=== PATIENT | male | born 1930 | race African-American/Black ===

== ENCOUNTER 2019-08-14 11:06 | Emergency (ER) | payer OTHER ==
[~2019-08-14] VITALS: Ht 172.7 cm; Wt 64.0 kg
[2019-08-14] MEDS ORDERED: SODIUM CHLORIDE 0.9% 1000ML BAG (SEPSIS BOLUS) IV ONE (11:45)
[2019-08-14 12:17] LABS: BASOPHILS % 0.6 % (0.0-2.0); EOSINOPHILS % 4.1 % (0.0-5.0); HEMATOCRIT. 42.4 % (42.0-52.0); HEMOGLOBIN. 14.5 g/dL (14.0-18.0); LYMPHOCYTES % 38.9 % (20.0-50.0); MEAN CORPUSCULAR HEMOGLOBIN 30.3 pg (28.0-32.0); MEAN CORPUSCULAR VOLUME 88.7 fL (80.0-94.0); MEAN PLATELET VOLUME 8.3 fl (7.4-10.4); MONOCYTES % 12.4 % (2.0-8.0); PLATELET 155 x1000/uL (130-400); RED BLOOD CELL COUNT 4.78 mill/uL (4.7-6.1); RED CELL DISTRIBUTION WIDTH 14.7 % (11.6-14.6)
[2019-08-14 12:22] LABS: INR 1.1; PROTHROMBIN TIME 11.1 sec (9.6-11.0)
[2019-08-14 12:30] LABS: CHLORIDE 109 mEq/L (98-107)
[2019-08-14] MEDS ORDERED: PIPERACILLIN/TAZ 3.375G PREMIX 50 ML IV ONE (12:45)
[2019-08-14] MEDS ORDERED: VANCOMYCIN 1 G PREMIX 200 ML IV ONE (12:45)
[2019-08-14 17:02] VITALS: BP 131/78
== END 2019-08-14 18:17 | disposition short-term general hospital (02) ==
LOC: ER 11:06 → CANBEDREQ 20:35
DX: R65.20 Severe sepsis without septic shock (principal); R55 Syncope and collapse; I10 Essential (primary) hypertension
CPT/HCPCS: 36415; 71045; 80053; 83605; 84145; 84484; 85025; 85610; 87040; 93005; 96361; 96365; 96367; 99291; J2543; J3370; J7030

== ENCOUNTER 2021-06-28 13:10 | Emergency (ER) | payer OTHER ==
[~2021-06-28] VITALS: Ht 170.2 cm; Wt 50.0 kg
[2021-06-28] MEDS ORDERED: SODIUM CHLORIDE 0.9% 1,000 ML IV ONE (14:15)
[2021-06-28 14:44] LABS: BASOPHILS % 0.5 % (0.0-2.0); EOSINOPHILS % 4.4 % (0.0-5.0); HEMATOCRIT. 39.5 % (42.0-52.0); LYMPHOCYTES % 30.1 % (20.0-50.0); MEAN CORPUSCULAR HEMOGLOBIN 30.2 pg (28.0-32.0); MEAN CORPUSCULAR VOLUME 91.9 fL (80.0-94.0); RED CELL DISTRIBUTION WIDTH 14.8 % (11.6-14.6)
[2021-06-28 14:45] LABS: CHLORIDE 111 mEq/L (98-107)
[2021-06-28 16:52] LABS: MEAN PLATELET VOLUME 8.9 fl (7.4-10.4); PLATELET 81 x1000/uL (130-400)
[2021-06-28] MEDS ORDERED: INSULIN REGULAR (HUMULIN R) 300UNITS/3ML VIAL IV ONE (17:00)
[2021-06-28] MEDS ORDERED: DEXTROSE 50% WATER 50ML SYRINGE IV ONE (17:00)
[2021-06-28] MEDS ORDERED: SODIUM POLYSTYRENE SULFONATE 15 G/60 ML BOT PO ONE (17:00)
[2021-06-29 00:33] VITALS: BP 137/66
== END 2021-06-29 00:47 | disposition short-term general hospital (02) ==
LOC: ER 14:04 → CANBEDREQ 22:30 → ER 06-29 00:47
DX: I67.9 Cerebrovascular disease, unspecified (principal); E87.5 Hyperkalemia; S09.8XXA Other specified injuries of head, initial encounter; I10 Essential (primary) hypertension; D69.6 Thrombocytopenia, unspecified; R53.81 Other malaise; R77.8 Other specified abnormalities of plasma proteins; H26.9 Unspecified cataract; F03.90 Unspecified dementia, unspecified severity, without behavioral disturbance, psychotic disturbance, mood disturbance, and anxiety; E87.8 Other disorders of electrolyte and fluid balance, not elsewhere classified; G31.9 Degenerative disease of nervous system, unspecified; W01.10XA Fall on same level from slipping, tripping and stumbling with subsequent striking against unspecified object, initial encounter; Y93.89 Activity, other specified; Y92.013 Bedroom of single-family (private) house as the place of occurrence of the external cause; Z74.01 Bed confinement status
CPT/HCPCS: 36415; 70450; 71045; 80053; 84484; 85025; 93005; 96374; 96375; 99285; J1815; J7030

== ENCOUNTER 2021-08-26 13:12 | Inpatient (IN) | payer OTHER ==
[~2021-08-26] VITALS: Ht 177.8 cm; Wt 50.8 kg
[2021-08-26 13:30] LABS: HEMATOCRIT. 40.5 % (42.0-52.0); HEMOGLOBIN. 13.3 g/dL (14.0-18.0); MEAN CORPUSCULAR HEMOGLOBIN 29.5 pg (28.0-32.0); MEAN PLATELET VOLUME 8.5 fl (7.4-10.4); PLATELET 232 x1000/uL (130-400); RED CELL DISTRIBUTION WIDTH 14.2 % (11.6-14.6)
[2021-08-26] MEDS ORDERED: SODIUM CHLORIDE 0.9% 1,000 ML IV ONE (13:30)
[2021-08-26 13:41] LABS: BG CARBOXYHEMOGLOBIN 0.4 % (0.5-1.5); BG DEOXYHEMOGLOBIN 3.5 % (0.0-5.0); BG FRACTION INSPIRED OXYGEN 21; BG METHEMOGLOBIN 0.2 % (0.0-1.5); BG OXYGEN SATURATION 96.5 % (92.0-98.5); BG OXYHEMOGLOBIN 95.9 % (94.0-97.0); BG PCO2 35.1 mmHg (35.0-45.0); BG PH 7.414 (7.350-7.450); BG PO2 83.2 mmHg (75.0-100.0); BG SAMPLE SITE RIGHT RADIAL; BG VENT MODE ROOM AIR
[2021-08-26 14:04] LABS: CHLORIDE 108 mEq/L (98-107); CREATINE KINASE 122 IU/L (39-308)
[2021-08-26 14:06] LABS: ETHANOL BLOOD < 10 mg/dL
[2021-08-26] MEDS ORDERED: VANCOMYCIN 1G PREMIX 200 ML IV SCH (15:15)
[2021-08-26] MEDS ORDERED: CEFEPIME HCL 1000MG/VIAL INJ IM ONE (15:15)
[2021-08-26 15:46] LABS: PLATELET ESTIMATE NORMAL
[2021-08-26] MEDS ORDERED: ALBUTEROL (0.083%) 2.5MG/3ML NEB HHN ONE (16:00)
[2021-08-26] MEDS ORDERED: DEXTROSE 50% WATER 50ML SYRINGE IV ONE (16:00)
[2021-08-26] MEDS ORDERED: CALCIUM CHLORIDE 1GM/10ML SYR IV ONE (16:00)
[2021-08-26] MEDS ORDERED: INSULIN REGULAR (HUMULIN R) 300UNITS/3ML VIAL IV ONE (16:00)
[2021-08-26] MEDS ORDERED: CEFEPIME HCL 1000MG/VIAL INJ IV ONE (16:15)
[2021-08-26] MEDS ORDERED: CEFEPIME 1,000 MG in DEXTROSE 5% WATER 50 ML IV SCH (16:30)
[2021-08-26 17:01] LABS: CLARITY URINE CLEAR (CLEAR); COLOR URINE DK YELLOW (YELLOW); KETONES URINE NEGATIVE (NEGATIVE); LEUKOCYTE ESTERASE URINE NEGATIVE (NEGATIVE); NITRITE URINE NEGATIVE (NEGATIVE); OCCULT BLOOD URINE 3+ (NEGATIVE); PROTEIN URINE NEGATIVE (NEGATIVE); SPECIFIC GRAVITY URINE 1.016 (1.005-1.030); UROBILINOGEN URINE 0.2 E.U./dL (0.2-1.0)
[2021-08-26] MEDS ORDERED: MAGNESIUM/ALUMINUM HYDROXIDE/SIMETHICONE 30ML UDC PO PRN (17:15)
[2021-08-26] MEDS ORDERED: DOCUSATE SODIUM 100MG CAPSULE PO PRN (17:15)
[2021-08-26] MEDS ORDERED: CLONIDINE 0.1MG TABLET PO PRN (17:15)
[2021-08-26] MEDS ORDERED: GUAIFENESIN 200MG/10ML SUGAR FREE UDC PO PRN (17:15)
[2021-08-26] MEDS ORDERED: IPRATROPIUM/ALBUTEROL 0.5-3(2.5)MG/3ML NEB NEB PRN (17:15)
[2021-08-26] MEDS ORDERED: ZOLPIDEM TARTRATE 5MG TABLET PO PRN (17:15)
[2021-08-26] MEDS ORDERED: ACETAMINOPHEN 325MG TABLET PO PRN ×2 (17:15)
[2021-08-26] MEDS ORDERED: NITROGLYCERIN 0.4MG TABLET SL SL PRN (17:15)
[2021-08-26] MEDS ORDERED: ONDANSETRON HCL 4MG/2ML INJ IV PRN (17:15)
[2021-08-26 17:42] LABS: *AMPHETAMINES SCREEN URINE NEGATIVE (NEGATIVE); CANNABINOID URINE SCREEN NEGATIVE (NEGATIVE); OPIATES URINE SCREEN NEGATIVE (NEGATIVE); PHENCYCLIDINE URINE SCREEN NEGATIVE (NEGATIVE)
[2021-08-26 17:43] LABS: *BARBITURATES SCREEN URINE NEGATIVE (NEGATIVE)
[2021-08-26 17:44] LABS: *BENZODIAZEPINES SCREEN URINE NEGATIVE (NEGATIVE); METHADONE URINE SCREEN NEGATIVE (NEGATIVE)
[2021-08-26 17:45] LABS: *COCAINE SCREEN URINE NEGATIVE (NEGATIVE)
[2021-08-26 19:03] LABS: T4 FREE 1.38 ng/dL (0.76-1.46)
[2021-08-26 19:22] LABS: FOLIC ACID (FOLATE) SERUM >20 ng/mL ng/mL (>5.38)
[2021-08-26 19:32] LABS: VITAMIN B12 SERUM 1268 pg/mL (211-911)
[2021-08-26] MEDS: ENOXAPARIN 30MG/0.3ML SYR SUBCUT SCH (20:15)
[2021-08-26] MEDS: DEXT 5%/0.45% NACL 1000ML 1,000 ML IV SCH (20:16)
[2021-08-26] MEDS: PIPERACILLIN/TAZ 3.375G PREMIX 50 ML IV SCH (20:47)
[2021-08-26] MEDS: ASCORBIC ACID 500 MG TABLET PO SCH (21:29)
[2021-08-26] MEDS: METOPROLOL TARTRATE 25MG TABLET PO SCH (21:30)
[2021-08-26 22:19] LABS: CREATINE KINASE MB FRACTION 1.4 ng/mL (0.5-3.6)
[2021-08-27] MEDS: DEXT 5%/0.45% NACL 1000ML 1,000 ML IV SCH ×3 (03:45→23:24)
[2021-08-27 05:30] LABS: CHLORIDE 109 mEq/L (98-107)
[2021-08-27 05:40] LABS: HEMOGLOBIN. 11.5 g/dL (14.0-18.0); MEAN CORPUSCULAR HEMOGLOBIN 30.2 pg (28.0-32.0); MEAN PLATELET VOLUME 8.6 fl (7.4-10.4); PHOSPHORUS 3.5 mg/dL (2.5-4.9); PLATELET 173 x1000/uL (130-400); RED BLOOD CELL COUNT 3.82 mill/uL (4.7-6.1); RED CELL DISTRIBUTION WIDTH 14.3 % (11.6-14.6)
[2021-08-27 05:41] LABS: LDL CHOLESTEROL 87 mg/dL (5-100)
[2021-08-27 05:43] LABS: HDL CHOLESTEROL 37 mg/dL (40-59)
[2021-08-27 05:45] LABS: CREATINE KINASE MB FRACTION 1.6 ng/mL (0.5-3.6)
[2021-08-27 05:47] LABS: PLATELET ESTIMATE NORMAL
[2021-08-27] MEDS: ZINC SULFATE 220 MG ( 50 ) CAPSULE PO SCH (08:45)
[2021-08-27] MEDS: CHOLECALCIFEROL (D3) 1000 UNIT TABLET PO SCH (09:45)
[2021-08-27] MEDS: PIPERACILLIN/TAZ 3.375G PREMIX 50 ML IV SCH (10:02)
[2021-08-27] MEDS: PANTOPRAZOLE SODIUM 40 MG/VIAL IV SCH (10:04)
[2021-08-27] MEDS: ASCORBIC ACID 500 MG TABLET PO SCH ×2 (10:11→20:48)
[2021-08-27] MEDS: ASPIRIN 325MG EC TABLET PO SCH (10:11)
[2021-08-27] MEDS: METOPROLOL TARTRATE 25MG TABLET PO SCH ×2 (10:13→20:48)
[2021-08-27 10:30] VITALS: BP 133/71
[2021-08-27 12:05] VITALS: BP 133/71
[2021-08-27] MEDS ORDERED: VANCOMYCIN 1250MG in DEXTROSE 5% WATER 250ML IV NR (13:00)
[2021-08-27 16:14] VITALS: BP 128/86
[2021-08-27] MEDS: ENOXAPARIN 30MG/0.3ML SYR SUBCUT SCH (17:35)
[2021-08-27 20:00] VITALS: BP_SYST 143; BP_SYST 150; BP_DIAS 85; BP_DIAS 94
[2021-08-27] MEDS: PIPERACILLIN/TAZOBACTAM 3.375 G in DEXTROSE 5% WATER 50 ML IV SCH (20:48)
[2021-08-28] VITALS: BP 150/94
[2021-08-28 03:52] VITALS: BP 152/89
[2021-08-28 08:00] VITALS: BP 139/91
[2021-08-28] MEDS: ASPIRIN 325MG EC TABLET PO SCH (09:00)
[2021-08-28] MEDS: PIPERACILLIN/TAZOBACTAM 3.375 G in DEXTROSE 5% WATER 50 ML IV SCH ×2 (09:31→21:46)
[2021-08-28] MEDS: PANTOPRAZOLE SODIUM 40 MG/VIAL IV SCH (09:31)
[2021-08-28] MEDS: DEXT 5%/0.45% NACL 1000ML 1,000 ML IV SCH ×2 (09:31→21:46)
[2021-08-28] MEDS: ASCORBIC ACID 500 MG TABLET PO SCH ×2 (09:32→21:47)
[2021-08-28] MEDS: METOPROLOL TARTRATE 25MG TABLET PO SCH ×2 (09:32→21:47)
[2021-08-28] MEDS: ZINC SULFATE 220 MG ( 50 ) CAPSULE PO SCH (09:33)
[2021-08-28] MEDS: CHOLECALCIFEROL (D3) 1000 UNIT TABLET PO SCH (09:33)
[2021-08-28 12:09] VITALS: BP 144/98
[2021-08-28 16:00] VITALS: BP 139/93
[2021-08-28] MEDS: ENOXAPARIN 30MG/0.3ML SYR SUBCUT SCH (17:42)
[2021-08-28 20:00] VITALS: BP 127/86
[2021-08-28] MEDS ORDERED: VANCOMYCIN 750 MG in DEXT 5% WATER 250 ML IV SCH (23:00)
[2021-08-29] VITALS: BP 137/83
[2021-08-29 04:00] VITALS: BP 148/97
[2021-08-29] MEDS: DEXT 5%/0.45% NACL 1000ML 1,000 ML IV SCH ×2 (05:24→15:42)
[2021-08-29 08:00] VITALS: BP 164/95
[2021-08-29 08:30] LABS: HEMATOCRIT. 30.6 % (42.0-52.0); HEMOGLOBIN. 10.6 g/dL (14.0-18.0); MEAN CORPUSCULAR HEMOGLOBIN 30.2 pg (28.0-32.0); MEAN PLATELET VOLUME 8.9 fl (7.4-10.4); PLATELET 192 x1000/uL (130-400); RED BLOOD CELL COUNT 3.52 mill/uL (4.7-6.1); RED CELL DISTRIBUTION WIDTH 13.6 % (11.6-14.6)
[2021-08-29 08:41] LABS: CHLORIDE 107 mEq/L (98-107)
[2021-08-29] MEDS: ASCORBIC ACID 500 MG TABLET PO SCH ×2 (09:44→21:33)
[2021-08-29] MEDS: METOPROLOL TARTRATE 25MG TABLET PO SCH ×2 (09:44→21:33)
[2021-08-29] MEDS: FAMOTIDINE 20MG/2ML VIAL IV SCH (09:45)
[2021-08-29] MEDS: ASPIRIN 325MG EC TABLET PO SCH (09:45)
[2021-08-29] MEDS: PIPERACILLIN/TAZOBACTAM 3.375 G in DEXTROSE 5% WATER 50 ML IV SCH ×2 (09:45→21:33)
[2021-08-29] MEDS: ZINC SULFATE 220 MG ( 50 ) CAPSULE PO SCH (09:45)
[2021-08-29] MEDS: CHOLECALCIFEROL (D3) 1000 UNIT TABLET PO SCH (09:45)
[2021-08-29 10:31] LABS: PLATELET ESTIMATE NORMAL
[2021-08-29 12:00] VITALS: BP 135/97
[2021-08-29] MEDS ORDERED: POTASSIUM PHOS,M-BASIC-D-BASIC 15 MMOL in DEXT 5% WATER 245 ML IV SCH (15:00)
[2021-08-29 16:00] VITALS: BP 150/89
[2021-08-29] MEDS ORDERED: VANCOMYCIN 750 MG in DEXT 5% WATER 250 ML IV SCH (18:00)
[2021-08-29] MEDS: ENOXAPARIN 30MG/0.3ML SYR SUBCUT SCH (18:08)
[2021-08-29 20:00] VITALS: BP 137/94
[2021-08-30] VITALS: BP 126/82
[2021-08-30] MEDS: DEXT 5%/0.45% NACL 1000ML 1,000 ML IV SCH ×3 (02:00→21:24)
[2021-08-30 04:00] VITALS: BP 121/79
[2021-08-30 06:53] LABS: CHLORIDE 107 mEq/L (98-107)
[2021-08-30 06:56] LABS: HEMATOCRIT. 38.1 % (42.0-52.0); HEMOGLOBIN. 12.4 g/dL (14.0-18.0); MEAN CORPUSCULAR HEMOGLOBIN 29.2 pg (28.0-32.0); MEAN PLATELET VOLUME 8.9 fl (7.4-10.4); PLATELET 217 x1000/uL (130-400); RED BLOOD CELL COUNT 4.24 mill/uL (4.7-6.1); RED CELL DISTRIBUTION WIDTH 13.9 % (11.6-14.6)
[2021-08-30 07:09] LABS: PHOSPHORUS 2.4 mg/dL (2.5-4.9)
[2021-08-30 08:00] VITALS: BP 136/83
[2021-08-30] MEDS ORDERED: POTASSIUM-SODIUM PHOSPHATE POWDER PACKET PO NR (09:30)
[2021-08-30] MEDS: METOPROLOL TARTRATE 25MG TABLET PO SCH ×2 (09:42→21:00)
[2021-08-30] MEDS: CHOLECALCIFEROL (D3) 1000 UNIT TABLET PO SCH (09:42)
[2021-08-30] MEDS: FAMOTIDINE 20MG/2ML VIAL IV SCH (09:42)
[2021-08-30] MEDS: PIPERACILLIN/TAZOBACTAM 3.375 G in DEXTROSE 5% WATER 50 ML IV SCH ×2 (09:42→21:00)
[2021-08-30] MEDS: ASCORBIC ACID 500 MG TABLET PO SCH ×2 (09:42→21:00)
[2021-08-30] MEDS: ASPIRIN 325MG EC TABLET PO SCH (09:43)
[2021-08-30] MEDS: ZINC SULFATE 220 MG ( 50 ) CAPSULE PO SCH (09:43)
[2021-08-30 12:00] VITALS: BP 140/86
[2021-08-30 14:31] LABS: PLATELET ESTIMATE NORMAL
[2021-08-30 16:00] VITALS: BP 120/82
[2021-08-30] MEDS ORDERED: VANCOMYCIN 750MG PREMIX 150 ML IV SCH (16:00)
[2021-08-30] MEDS ORDERED: VANCOMYCIN 750 MG in DEXT 5% WATER 250 ML IV SCH (16:30)
[2021-08-30] MEDS: ENOXAPARIN 30MG/0.3ML SYR SUBCUT SCH (17:40)
[2021-08-30 20:00] VITALS: BP 150/91
[2021-08-30] MEDS: HALOPERIDOL LACTATE 5MG/ML VIAL IM PRN (21:01)
[2021-08-31] VITALS: BP 144/87
[2021-08-31 04:00] VITALS: BP 151/88
[2021-08-31 06:49] LABS: HEMATOCRIT. 33.2 % (42.0-52.0); HEMOGLOBIN. 11.3 g/dL (14.0-18.0); MEAN CORPUSCULAR HEMOGLOBIN 30.1 pg (28.0-32.0); MEAN CORPUSCULAR VOLUME 88.5 fL (80.0-94.0); MEAN PLATELET VOLUME 9.1 fl (7.4-10.4); PLATELET 234 x1000/uL (130-400); RED BLOOD CELL COUNT 3.75 mill/uL (4.7-6.1); RED CELL DISTRIBUTION WIDTH 13.8 % (11.6-14.6)
[2021-08-31] MEDS: DEXT 5%/0.45% NACL 1000ML 1,000 ML IV SCH ×2 (07:24→17:24)
[2021-08-31 07:51] LABS: PHOSPHORUS 2.2 mg/dL (2.5-4.9)
[2021-08-31 08:00] VITALS: BP 158/90
[2021-08-31] MEDS: ZINC SULFATE 220 MG ( 50 ) CAPSULE PO SCH (09:32)
[2021-08-31] MEDS: CHOLECALCIFEROL (D3) 1000 UNIT TABLET PO SCH (09:32)
[2021-08-31] MEDS: ASCORBIC ACID 500 MG TABLET PO SCH ×2 (09:33→21:38)
[2021-08-31] MEDS: ASPIRIN 325MG EC TABLET PO SCH (09:33)
[2021-08-31] MEDS: FAMOTIDINE 20MG TABLET PO SCH (09:33)
[2021-08-31] MEDS: METOPROLOL TARTRATE 25MG TABLET PO SCH ×2 (09:33→21:00)
[2021-08-31] MEDS: PIPERACILLIN/TAZOBACTAM 3.375 G in DEXTROSE 5% WATER 50 ML IV SCH ×2 (10:45→21:38)
[2021-08-31 12:17] VITALS: BP 121/74
[2021-08-31] MEDS ORDERED: POTASSIUM PHOS,M-BASIC-D-BASIC 20 MMOL in DEXT 5% WATER 243.3333 ML IV NR (12:30)
[2021-08-31 12:47] LABS: PLATELET ESTIMATE NORMAL
[2021-08-31] MEDS ORDERED: VANCOMYCIN 1G PREMIX 200 ML IV NR (14:00)
[2021-08-31 16:30] VITALS: BP 116/77
[2021-08-31] MEDS: ENOXAPARIN 30MG/0.3ML SYR SUBCUT SCH (18:10)
[2021-08-31] MEDS: HALOPERIDOL LACTATE 5MG/ML VIAL IM PRN (18:10)
[2021-08-31 20:00] VITALS: BP 139/93
[2021-09-01] VITALS (7 sets, daily range): BP systolic 122–143; BP diastolic 74–89
[2021-09-01] MEDS ORDERED: VANCOMYCIN 1G PREMIX 200 ML IV NR (01:00)
[2021-09-01 06:15] LABS: HEMATOCRIT. 29.8 % (42.0-52.0); HEMOGLOBIN. 10.5 g/dL (14.0-18.0); MEAN CORPUSCULAR HEMOGLOBIN 30.7 pg (28.0-32.0); MEAN PLATELET VOLUME 8.8 fl (7.4-10.4); PLATELET 243 x1000/uL (130-400); RED BLOOD CELL COUNT 3.43 mill/uL (4.7-6.1); RED CELL DISTRIBUTION WIDTH 13.7 % (11.6-14.6)
[2021-09-01 08:32] LABS: CHLORIDE 110 mEq/L (98-107)
[2021-09-01 08:43] LABS: PHOSPHORUS 2.5 mg/dL (2.5-4.9)
[2021-09-01] MEDS: FAMOTIDINE 20MG TABLET PO SCH (08:49)
[2021-09-01] MEDS: CHOLECALCIFEROL (D3) 1000 UNIT TABLET PO SCH (08:49)
[2021-09-01] MEDS: ASPIRIN 325MG EC TABLET PO SCH (08:49)
[2021-09-01] MEDS: ZINC SULFATE 220 MG ( 50 ) CAPSULE PO SCH (08:49)
[2021-09-01] MEDS: ASCORBIC ACID 500 MG TABLET PO SCH ×2 (08:49→22:14)
[2021-09-01] MEDS: METOPROLOL TARTRATE 25MG TABLET PO SCH ×2 (08:50→22:14)
[2021-09-01] MEDS: DEXT 5%/0.45% NACL 1000ML 1,000 ML IV SCH ×2 (12:33→23:24)
[2021-09-01] MEDS: ENOXAPARIN 30MG/0.3ML SYR SUBCUT SCH (17:54)
[2021-09-01 20:05] LABS: PLATELET ESTIMATE NORMAL
[2021-09-02 00:13] VITALS: BP 136/80
[2021-09-02 04:00] VITALS: BP 115/72
[2021-09-02 08:00] VITALS: BP 132/78
[2021-09-02] MEDS: ASPIRIN 325MG EC TABLET PO SCH (09:29)
[2021-09-02] MEDS: METOPROLOL TARTRATE 25MG TABLET PO SCH ×2 (09:29→20:33)
[2021-09-02] MEDS: ZINC SULFATE 220 MG ( 50 ) CAPSULE PO SCH (09:29)
[2021-09-02] MEDS: CHOLECALCIFEROL (D3) 1000 UNIT TABLET PO SCH (09:29)
[2021-09-02] MEDS: FAMOTIDINE 20MG TABLET PO SCH (09:29)
[2021-09-02] MEDS: ASCORBIC ACID 500 MG TABLET PO SCH ×2 (09:30→20:33)
[2021-09-02 12:00] VITALS: BP 128/80
[2021-09-02] MEDS: DEXT 5%/0.45% NACL 1000ML 1,000 ML IV SCH ×2 (12:01→19:24)
[2021-09-02 16:00] VITALS: BP 116/79
[2021-09-02] MEDS: ENOXAPARIN 30MG/0.3ML SYR SUBCUT SCH (19:40)
[2021-09-02 20:00] VITALS: BP 140/84
[2021-09-03] VITALS: BP 128/71
[2021-09-03 04:00] VITALS: BP 137/89
[2021-09-03] MEDS: DEXT 5%/0.45% NACL 1000ML 1,000 ML IV SCH ×2 (04:15→16:28)
[2021-09-03 08:01] VITALS: BP 133/86
[2021-09-03] MEDS: ASPIRIN 325MG EC TABLET PO SCH (08:02)
[2021-09-03] MEDS: ZINC SULFATE 220 MG ( 50 ) CAPSULE PO SCH (08:02)
[2021-09-03] MEDS: FAMOTIDINE 20MG TABLET PO SCH (08:02)
[2021-09-03] MEDS: METOPROLOL TARTRATE 25MG TABLET PO SCH (08:02)
[2021-09-03] MEDS: CHOLECALCIFEROL (D3) 1000 UNIT TABLET PO SCH (08:02)
[2021-09-03] MEDS: ASCORBIC ACID 500 MG TABLET PO SCH ×2 (08:03→20:47)
[2021-09-03 12:00] VITALS: BP 115/79
[2021-09-03 13:00] LABS: HEMATOCRIT. 31.2 % (42.0-52.0); HEMOGLOBIN. 10.6 g/dL (14.0-18.0); MEAN CORPUSCULAR VOLUME 88.4 fL (80.0-94.0); MEAN PLATELET VOLUME 8.7 fl (7.4-10.4); PLATELET 242 x1000/uL (130-400); RED BLOOD CELL COUNT 3.53 mill/uL (4.7-6.1); RED CELL DISTRIBUTION WIDTH 14.1 % (11.6-14.6)
[2021-09-03 13:33] LABS: CHLORIDE 109 mEq/L (98-107)
[2021-09-03 13:56] LABS: PLATELET ESTIMATE NORMAL
[2021-09-03 16:00] VITALS: BP 116/69
[2021-09-03] MEDS: ENOXAPARIN 30MG/0.3ML SYR SUBCUT SCH (18:13)
[2021-09-03 20:00] VITALS: BP 120/70
[2021-09-04] VITALS: BP 118/69
[2021-09-04] MEDS: DEXT 5%/0.45% NACL 1000ML 1,000 ML IV SCH ×3 (00:53→20:35)
[2021-09-04 04:00] VITALS: BP 114/84
[2021-09-04 08:00] VITALS: BP 129/79
[2021-09-04] MEDS: ASPIRIN 325MG EC TABLET PO SCH (09:19)
[2021-09-04] MEDS: ASCORBIC ACID 500 MG TABLET PO SCH ×2 (09:19→20:35)
[2021-09-04] MEDS: FAMOTIDINE 20MG TABLET PO SCH (09:19)
[2021-09-04] MEDS: ZINC SULFATE 220 MG ( 50 ) CAPSULE PO SCH (09:19)
[2021-09-04] MEDS: CHOLECALCIFEROL (D3) 1000 UNIT TABLET PO SCH (09:20)
[2021-09-04 09:33] LABS: HEMATOCRIT. 28.5 % (42.0-52.0); HEMOGLOBIN. 9.8 g/dL (14.0-18.0); MEAN CORPUSCULAR HEMOGLOBIN 30.4 pg (28.0-32.0); MEAN CORPUSCULAR VOLUME 88.3 fL (80.0-94.0); MEAN PLATELET VOLUME 8.6 fl (7.4-10.4); PLATELET 250 x1000/uL (130-400); RED BLOOD CELL COUNT 3.23 mill/uL (4.7-6.1); RED CELL DISTRIBUTION WIDTH 13.9 % (11.6-14.6)
[2021-09-04 09:40] LABS: CHLORIDE 110 mEq/L (98-107)
[2021-09-04 11:54] LABS: PLATELET ESTIMATE NORMAL
[2021-09-04 12:00] VITALS: BP 112/76
[2021-09-04 16:00] VITALS: BP 141/78
[2021-09-04] MEDS: ENOXAPARIN 30MG/0.3ML SYR SUBCUT SCH (17:08)
[2021-09-04 20:00] VITALS: BP 144/87
[2021-09-05] VITALS: BP 130/79
[2021-09-05 04:00] VITALS: BP 124/72
[2021-09-05 05:38] LABS: CHLORIDE 110 mEq/L (98-107)
[2021-09-05] MEDS: DEXT 5%/0.45% NACL 1000ML 1,000 ML IV SCH (06:28)
[2021-09-05 06:29] LABS: BASOPHILS % 0.5 % (0.0-2.0); EOSINOPHILS % 1.9 % (0.0-5.0); HEMATOCRIT. 29.2 % (42.0-52.0); HEMOGLOBIN. 10.1 g/dL (14.0-18.0); LYMPHOCYTES % 18.9 % (20.0-50.0); MEAN CORPUSCULAR HEMOGLOBIN 30.5 pg (28.0-32.0); MEAN CORPUSCULAR VOLUME 88.3 fL (80.0-94.0); MEAN PLATELET VOLUME 9.1 fl (7.4-10.4); MONOCYTES % 14.3 % (2.0-8.0); NEUTROPHILS % 64.4 % (40.0-76.0); PLATELET 256 x1000/uL (130-400); RED CELL DISTRIBUTION WIDTH 13.9 % (11.6-14.6)
[2021-09-05 08:00] VITALS: BP 112/65
[2021-09-05] MEDS: ZINC SULFATE 220 MG ( 50 ) CAPSULE PO SCH (08:54)
[2021-09-05] MEDS: CHOLECALCIFEROL (D3) 1000 UNIT TABLET PO SCH (08:55)
[2021-09-05] MEDS: ASCORBIC ACID 500 MG TABLET PO SCH ×2 (08:55→20:10)
[2021-09-05] MEDS: FAMOTIDINE 20MG TABLET PO SCH (08:55)
[2021-09-05] MEDS: ASPIRIN 325MG EC TABLET PO SCH (08:55)
[2021-09-05 11:55] VITALS: BP 120/73
[2021-09-05 16:00] VITALS: BP 131/74
[2021-09-05] MEDS: ENOXAPARIN 30MG/0.3ML SYR SUBCUT SCH (19:25)
[2021-09-05 20:00] VITALS: BP 129/71
[2021-09-06] VITALS: BP 130/78
[2021-09-06 04:00] VITALS: BP 125/79
[2021-09-06 08:00] VITALS: BP 134/81
[2021-09-06] MEDS: ASCORBIC ACID 500 MG TABLET PO SCH ×2 (08:56→21:36)
[2021-09-06] MEDS: FAMOTIDINE 20MG TABLET PO SCH (08:56)
[2021-09-06] MEDS: CHOLECALCIFEROL (D3) 1000 UNIT TABLET PO SCH (08:56)
[2021-09-06] MEDS: ASPIRIN 325MG EC TABLET PO SCH (08:56)
[2021-09-06] MEDS: ZINC SULFATE 220 MG ( 50 ) CAPSULE PO SCH (08:56)
[2021-09-06 12:00] VITALS: BP 114/78
[2021-09-06 16:00] VITALS: BP 144/85
[2021-09-06] MEDS: ENOXAPARIN 30MG/0.3ML SYR SUBCUT SCH (18:00)
[2021-09-06 20:00] VITALS: BP 119/66
[2021-09-07] VITALS: BP 139/90
[2021-09-07 04:00] VITALS: BP 104/62
[2021-09-07 08:00] VITALS: BP 127/84
[2021-09-07] MEDS: ASPIRIN 325MG EC TABLET PO SCH (09:02)
[2021-09-07] MEDS: FAMOTIDINE 20MG TABLET PO SCH (09:02)
[2021-09-07] MEDS: ASCORBIC ACID 500 MG TABLET PO SCH ×2 (09:02→20:14)
[2021-09-07] MEDS: CHOLECALCIFEROL (D3) 1000 UNIT TABLET PO SCH (09:02)
[2021-09-07] MEDS: ZINC SULFATE 220 MG ( 50 ) CAPSULE PO SCH (09:02)
[2021-09-07 16:00] VITALS: BP 117/76
[2021-09-07] MEDS: ENOXAPARIN 30MG/0.3ML SYR SUBCUT SCH (19:27)
[2021-09-07 20:00] VITALS: BP 128/79
[2021-09-08] VITALS: BP 142/85
[2021-09-08 04:00] VITALS: BP 130/78
[2021-09-08 08:00] VITALS: BP 134/74
[2021-09-08] MEDS: ASPIRIN 325MG EC TABLET PO SCH (09:08)
[2021-09-08] MEDS: CHOLECALCIFEROL (D3) 1000 UNIT TABLET PO SCH (09:08)
[2021-09-08] MEDS: ASCORBIC ACID 500 MG TABLET PO SCH ×2 (09:08→20:34)
[2021-09-08] MEDS: FAMOTIDINE 20MG TABLET PO SCH (09:08)
[2021-09-08] MEDS: ZINC SULFATE 220 MG ( 50 ) CAPSULE PO SCH (09:08)
[2021-09-08 12:25] VITALS: BP 124/78
[2021-09-08 16:02] VITALS: BP 125/77
[2021-09-08] MEDS: ENOXAPARIN 30MG/0.3ML SYR SUBCUT SCH (17:38)
[2021-09-08 20:00] VITALS: BP 117/66
[2021-09-09] VITALS: BP 113/77
[2021-09-09 04:00] VITALS: BP 113/68
[2021-09-09 08:19] VITALS: BP 122/71
[2021-09-09] MEDS: ZINC SULFATE 220 MG ( 50 ) CAPSULE PO SCH (08:57)
[2021-09-09] MEDS: ASPIRIN 325MG EC TABLET PO SCH (08:57)
[2021-09-09] MEDS: FAMOTIDINE 20MG TABLET PO SCH (08:57)
[2021-09-09] MEDS: CHOLECALCIFEROL (D3) 1000 UNIT TABLET PO SCH (08:58)
[2021-09-09] MEDS: ASCORBIC ACID 500 MG TABLET PO SCH ×2 (08:58→20:23)
[2021-09-09 12:00] VITALS: BP 128/86
[2021-09-09 14:31] LABS: HEMATOCRIT. 29.1 % (42.0-52.0); HEMOGLOBIN. 10.1 g/dL (14.0-18.0); MEAN CORPUSCULAR HEMOGLOBIN 30.5 pg (28.0-32.0); MEAN CORPUSCULAR VOLUME 88.2 fL (80.0-94.0); MEAN PLATELET VOLUME 8.3 fl (7.4-10.4); PLATELET 273 x1000/uL (130-400); RED CELL DISTRIBUTION WIDTH 15.1 % (11.6-14.6)
[2021-09-09 14:33] LABS: CHLORIDE 106 mEq/L (98-107)
[2021-09-09 16:30] VITALS: BP 139/83
[2021-09-09 16:57] LABS: PLATELET ESTIMATE NORMAL
[2021-09-09] MEDS: ENOXAPARIN 30MG/0.3ML SYR SUBCUT SCH (17:26)
[2021-09-09 20:00] VITALS: BP 145/87
[2021-09-10] VITALS: BP 123/74
[2021-09-10 02:39] VITALS: BP 123/74
[2021-09-10 04:00] VITALS: BP 106/65
[2021-09-10] MEDS: CHOLECALCIFEROL (D3) 1000 UNIT TABLET PO SCH (08:11)
[2021-09-10] MEDS: ASCORBIC ACID 500 MG TABLET PO SCH (08:11)
[2021-09-10] MEDS: FAMOTIDINE 20MG TABLET PO SCH (08:11)
[2021-09-10] MEDS: ASPIRIN 325MG EC TABLET PO SCH (08:11)
[2021-09-10] MEDS: ZINC SULFATE 220 MG ( 50 ) CAPSULE PO SCH (08:11)
[2021-09-10 08:30] VITALS: BP 132/84
[2021-09-10 11:30] VITALS: BP 128/81
== END 2021-09-10 12:20 | DRG 871 ==
LOC: ER 13:12 → MICUSO 16:01 → 6WST 08-27 11:21
PROVIDERS: ADMIT Internal Medicine; ATTEND Internal Medicine
DX: A41.9 Sepsis, unspecified organism (principal); N17.0 Acute kidney failure with tubular necrosis; G92.8 Other toxic encephalopathy; I21.4 Non-ST elevation (NSTEMI) myocardial infarction; M62.82 Rhabdomyolysis; E44.0 Moderate protein-calorie malnutrition; N39.0 Urinary tract infection, site not specified; Z68.1 Body mass index [BMI] 19.9 or less, adult; R65.20 Severe sepsis without septic shock; E86.0 Dehydration; I12.9 Hypertensive chronic kidney disease with stage 1 through stage 4 chronic kidney disease, or unspecified chronic kidney disease; N18.9 Chronic kidney disease, unspecified; E87.5 Hyperkalemia; D63.8 Anemia in other chronic diseases classified elsewhere; F03.90 Unspecified dementia, unspecified severity, without behavioral disturbance, psychotic disturbance, mood disturbance, and anxiety; E78.5 Hyperlipidemia, unspecified; J44.9 Chronic obstructive pulmonary disease, unspecified; R62.7 Adult failure to thrive; Z20.822 Contact with and (suspected) exposure to COVID-19; Z86.73 Personal history of transient ischemic attack (TIA), and cerebral infarction without residual deficits
CPT/HCPCS: 36415; 36600; 71045; 76770; 80048; 80053; 80061; 80202; 80305; 80307; 80320; 80329; 81003; 82140; 82375; 82550; 82553; 82607; 82746; 82805; 82962; 83036; 83540; 83550; 83605; 83735; 84100; 84145; 84439; 84443; 84484; 85025; 87426; 87804; 93005; 93306; 93970; 94640; 97116; 97162; 97166; 97530; 97535; 99291; C1893; C9113; J0692; J1630; J1650; J1815; J2543; J3370; J3490; J7030; J7060; A4315; G0480